=== PATIENT | female | born 1985 | race African-American/Black ===

== ENCOUNTER 2016-03-29 22:13 | Emergency (ER) | payer SELFPAY ==
[~2016-03-29] VITALS: Ht 160 cm; Wt 63.5 kg
[~2016-03-29 22:13] MED LIST: AMOX500C PO; HYDR-971 PO
[2016-03-29 22:24] VITALS: BP 127/80
--- NOTE | 2016-03-29 22:43 | PHYS DOC ---
Past Medical History Past Medical History: No Pertinent History Past Surgical History: No Surgical History Alcohol Use: None Drug Use: None Adult General Chief Complaint Chief Complaint: BLOOD SUGAR PROBLEM HPI HPI Patient is a 30 year old female who presents to the emergency Department today with complaint of "unusual/fruity" smelling urine for the past 2 weeks. Patient denies dysuria, hematuria, pelvic pain or flank pain. She denies any vaginal bleeding or discharge. Patient states that she has a family history of diabetes is been checking her blood sugar at home. Patient denies having any personal history of diabetes. Patient antibiotics within the past 90 days. Review of Systems Review of Systems Constitutional: Denies fever or chills [] Eyes: Denies change in visual acuity, redness, or eye pain [] HENT: Denies nasal congestion or sore throat [] Respiratory: Denies cough or shortness of breath [] Cardiovascular: No additional information not addressed in HPI [] GI: Denies abdominal pain, nausea, vomiting, bloody stools or diarrhea [] : Denies dysuria or hematuria [] Musculoskeletal: Denies back pain or joint pain [] Integument: Denies rash or skin lesions [] Neurologic: Denies headache, focal weakness or sensory changes [] Endocrine: Denies polyuria or polydipsia [] Allergies Allergies Allergies Coded Allergies Type Severity Reaction Last Updated Verified No Known Drug Allergies 12/25/15 No Physical Exam Physical Exam Constitutional: Well developed, well nourished, no acute distress, non-toxic appearance. [] HENT: Normocephalic, atraumatic, bilateral external ears normal, oropharynx moist, no oral exudates, nose normal. [] Eyes: PERRLA, EOMI, conjunctiva normal, no discharge. [] Neck: Normal range of motion, no tenderness, supple, no stridor. [] Cardiovascular:Heart rate regular rhythm, no murmur [] Lungs & Thorax: Bilateral breath sounds clear to auscultation [] Abdomen: Bowel sounds normal, soft, no tenderness, no masses, no pulsatile masses. [] Skin: Warm, dry, no erythema, no rash. [] Back: No tenderness, no CVA tenderness. [] Extremities: No tenderness, no cyanosis, no clubbing, ROM intact, no edema. [] Neurologic: Alert and oriented X 3, normal motor function, normal sensory function, no focal deficits noted. [] Psychologic: Affect normal, judgement normal, mood normal. [] Current Patient Data Vital Signs Vital Signs Date Time Temp Pulse Resp B/P Pulse Ox O2 Delivery O2 Flow Rate FiO2 03/29/16 22:24 98.2 80 18 100 Room Air 98.2 Lab Values Laboratory Tests Test 03/29/16 22:22 Urine Collection Type Unknown Urine Color Yellow Urine Clarity Clear Urine pH 6.0 Urine Specific [place] 1.015 Urine Protein Negativemg/dL (NEG-TRACE) Urine Glucose (UA) Negativemg/dL (NEG) Urine Ketones (Stick) Negativemg/dL (NEG) Urine Blood Trace (NEG) Urine Nitrite Negative (NEG) Urine Bilirubin Negative (NEG) Urine Urobilinogen Dipstick 0.2mg/dL (0.2 mg/dL) Urine Leukocyte Esterase Small (NEG) Urine RBC Occ/HPF (0-2) Urine WBC 5-10/HPF (0-4) Urine Squamous Epithelial Cells Mod/LPF Urine Bacteria Few/HPF (0-FEW) EKG EKG [] Radiology/Procedures Radiology/Procedures [] Course & Med Decision Making Course & Med Decision Making Pertinent Labs and Imaging studies reviewed. (See chart for details) [] Dragon Disclaimer Dragon Disclaimer This electronic medical record was generated, in whole or in part, using a voice recognition dictation system. Departure Departure Impression: Primary Impression: Urinary tract infection Disposition: 01 HOME, SELF-CARE Condition: GOOD Referrals: NO PCP (PCP) Patient Instructions: Urinary Tract Infection, [id number] Additional Instructions: 1. Your blood sugar here today is 109. 2. Take the antibiotic as prescribed. You may want to take an [id number] probiotic or eat a couple of yogurt daily. 3. Review the discharge instructions for self-care and reasons to return to the emergency department. 4. Use the pamphlet provided for assistance in finding a primary care doctor to address your medical concerns. Scripts Nitrofurantoin Macrocrystal (Nitrofurantoin)100 Mg Capsule1 Cap PO BID #14 CAP Prov:DARYN PETERS 03/29/16 Problem Qualifiers Primary Impression: Urinary tract infection Urinary tract infection type: acute cystitis Hematuria presence: without hematuria Qualified Code: N30.00 - Acute cystitis without hematuria DARYN PETERS Mar 29, 2016 22:44
[2016-03-29 22:49] LABS: BILIRUBIN,URINE NEGATIVE (NEG); GLUCOSE,URINE NEGATIVE (NEG); NITRITE,URINE NEGATIVE (NEG); PROTEIN,URINE NEGATIVE (NEG-TRACE); UROBILINOGEN,URINE 0.2 mg/dL (0.2 mg/dL)
[2016-03-29 23:05] LABS: BACTERIA,URINE FEW /HPF (0-FEW); RBC,URINE OCC /HPF (0-2); SQUAMOUS EPITHELIAL CELL,UR MOD /LPF
[2016-03-29] MEDS ORDERED: NITR100C PO (23:15)
--- NOTE | 2016-03-31 16:44 | VNOTE ---
CALL BACK NOTE CALL BACK Microbiology 03/29/16 Urine Culture - Final, Complete 03/29/16 Urine Culture Result 1 (WAYNE) - Final, Complete 03/29/16 Antimicrobic Susceptibility - Final, Complete urine culture positive for Enterobacter aerogenes, colony forming unit/ml, gram negative rods, 10-25,000 forming units per ml she was put on Macrobid, culture show it is intermediate coverage. Called patient she states she is doing very well and has no UTI symptoms. She will f/u with her own doctor. KERRI TERRELL APRN Mar 31, 2016 16:44
== END 2016-03-29 23:20 | disposition home or self-care (01) ==
LOC: ER 22:13
DX: N30.00 Acute cystitis without hematuria (principal)
CPT/HCPCS: 81001; 81025; 82947; 87086; 99284

== ENCOUNTER 2016-10-06 19:42 | Emergency (ER) | payer SELFPAY ==
[~2016-10-06] VITALS: Ht 160 cm; Wt 64.4 kg
[~2016-10-06 19:42] MED LIST changes: +NITR100C PO
[2016-10-06 19:46] VITALS: BP 123/68
[2016-10-06] MEDS ORDERED: TRAM-48 PO (20:21)
[2016-10-06] MEDS ORDERED: AMOX875T PO (20:21)
--- NOTE | 2016-10-06 20:22 | PHYS DOC ---
Past Medical History Past Medical History: No Pertinent History Past Surgical History: No Surgical History Alcohol Use: None Drug Use: None Adult General Chief Complaint Chief Complaint: DENTAL PROBLEM [facility] Patient is a 31 year old female who presents with moderate right lower gum dental pain that began 2 days ago after her tooth broke. Patient denies any fever or trismus. Review of Systems Review of Systems Constitutional: Denies fever or chills [] HENT:right lower gum dental pain Respiratory: Denies cough or shortness of breath [] Cardiovascular: No additional information not addressed in HPI [] Musculoskeletal: Denies back pain or joint pain [] Integument: Denies rash or skin lesions [] Neurologic: Denies headache, focal weakness or sensory changes [] Allergies Allergies Allergies Coded Allergies Type Severity Reaction Last Updated Verified No Known Drug Allergies 12/25/15 No Physical Exam Physical Exam Constitutional: Well developed, well nourished, no acute distress, non-toxic appearance. [] HENT: Normocephalic, atraumatic, bilateral external ears normal, oropharynx moist, no oral exudates, nose normal. [] Tooth #31 is broken and decayed. No gum erythema or swelling Skin: Warm, dry, no erythema, no rash. [] Back: No tenderness, no CVA tenderness. [] Extremities: No tenderness, no cyanosis, no clubbing, ROM intact, no edema. [] Neurologic: Alert and oriented X 3, normal motor function, normal sensory function, no focal deficits noted. [] Psychologic: Affect normal, judgement normal, mood normal. [] Current Patient Data Vital Signs Vital Signs Date Time Temp Pulse Resp B/P (MAP) Pulse Ox O2 Delivery O2 Flow Rate FiO2 10/06/16 19:46 98.5 69 16 100 Room Air 98.5 EKG EKG [] Radiology/Procedures Radiology/Procedures [] Course & Med Decision Making Course & Med Decision Making Pertinent Labs and Imaging studies reviewed. (See chart for details) Patient has infected dental carriers. D/c with amoxicillin and Ultram. F/u with her dentist next week. Dragon Disclaimer Dragon Disclaimer This electronic medical record was generated, in whole or in part, using a voice recognition dictation system. Departure Departure Impression: Primary Impression: Infected dental caries Additional Impression: Dentalgia Disposition: 01 HOME, SELF-CARE Condition: STABLE Referrals: NO PCP (PCP) follow up with your dentist next week Patient Instructions: Dental Caries Additional Instructions: You have infected dental carries. Complete your antibiotics take the pain medicines as needed. Scripts Tramadol Hcl (ULTRAM) 50 Mg Tablet 1 TAB PO Q6HRS, #30 TAB Prov: KERRI TERRELL APRN 10/06/16 Amoxicillin (AMOXICILLIN) 875 Mg Tablet 1 TAB PO BID, #20 TAB Prov: KERRI TERRELL APRN 10/06/16 Problem Qualifiers KERRI TERRELL APRN Oct 06, 2016 20:22
== END 2016-10-06 20:35 | disposition home or self-care (01) ==
LOC: ER 19:42
DX: K04.7 Periapical abscess without sinus (principal); K02.9 Dental caries, unspecified
CPT/HCPCS: 99283

== ENCOUNTER 2018-10-12 00:31 | Emergency (ER) | payer SELFPAY ==
[~2018-10-12] VITALS: Ht 162.6 cm; Wt 69.4 kg
[~2018-10-12 00:31] MED LIST changes: +AMOX875T PO; +HYDR-3164 PO; -HYDR-971 PO; +TRAM-48 PO
[2018-10-12 00:45] VITALS: BP 117/79
[2018-10-12] MEDS ORDERED: HYDR-3164 PO (01:14)
[2018-10-12] MEDS ORDERED: AMOX1TAB61 PO ×2 (01:14→01:19)
[2018-10-12] MEDS ORDERED: KETOROLAC 30 MG/ML VIAL. IM ONE (01:30)
--- NOTE | 2018-10-12 01:38 | PHYS DOC ---
Past Medical History Past Medical History: No Pertinent History Past Surgical History: No Surgical History Alcohol Use: None Drug Use: None Adult General Chief Complaint Chief Complaint: DENTAL PROBLEM HPI HPI Patient is a 33 year old dental pain left lower wisdom tooth for a couple days worse frankoiht took motrin Current Medications Current Medications Current Medications Medications (Trade) Dose Ordered Sig/Adamaris Start Time Stop Time Status Last Admin Dose Admin Ketorolac Tromethamine (Toradol 30mg Vial) 30 mg 1X ONCE 10/12/18 01:30 10/12/18 01:31 DC 10/12/18 01:25 30 MG Allergies Allergies Allergies Coded Allergies Type Severity Reaction Last Updated Verified No Known Drug Allergies 12/25/15 No Physical Exam Physical Exam Constitutional: Well developed, well nourished, no acute distress, non-toxic appearance. [] HENT: Normocephalic, atraumatic, bilateral external ears normal, oropharynx moist, no oral exudates, nose normal. [] left lower molar posteriorly some erythema no obvious drainable abscess, no facial swelling no lymphadenopathy Eyes: PERRLA, EOMI, conjunctiva normal, no discharge. [] Pulmonary: Normal respiratory effort no increased work of breathing no obvious chest wall trauma Abdomen: Bowel sounds normal, soft, no tenderness, no masses, no pulsatile masses. [] Skin: Warm, dry, no erythema, no rash. [] Neurologic: Alert and oriented X 3, normal motor function, normal sensory function, no focal deficits noted. [] Psychologic: Affect normal, judgement normal, mood normal. [] Current Patient Data Vital Signs Vital Signs Date Time Temp Pulse Resp B/P (MAP) Pulse Ox O2 Delivery O2 Flow Rate FiO2 10/12/18 00:45 97.8 78 17 117/79 (92) 100 Room Air 97.8 EKG EKG [] Radiology/Procedures Radiology/Procedures [] Course & Med Decision Making Course & Med Decision Making Pertinent Labs and Imaging studies reviewed. (See chart for details) []no drainable fluid collection given dental f/u pain meds, abx return prec discussed Tera Disclaimer Tera Disclaimer This electronic medical record was generated, in whole or in part, using a voice recognition dictation system. Departure Departure Impression: Primary Impression: Toothache Disposition: HOME, SELF-CARE Condition: STABLE Patient Instructions: Toothache-Brief Scripts Amoxicillin/Potassium Clav (AUGMENTIN 875-125 TABLET) 1 Each Tablet 1 TAB PO BID, #14 TAB Prov: JANI ABBASI MD 10/12/18 Amoxicillin/Potassium Clav (AUGMENTIN 875-125 TABLET) 1 Each Tablet 1 TAB PO BID, #28 TAB Prov: JANI ABBASI MD 10/12/18 Hydrocodone/Apap 5-325 (NORCO 5-325 TABLET) 1 Each Tablet 1-2 EACH PO PRN Q6HRS PRN for PAIN, #15 as needed for pain Prov: JANI ABBASI MD 10/12/18 JANI ABBASI MD Oct 12, 2018 01:38
== END 2018-10-12 01:30 | disposition home or self-care (01) ==
LOC: ER 00:31
DX: K08.89 Other specified disorders of teeth and supporting structures (principal)
CPT/HCPCS: 96372; 99283; J1885

== ENCOUNTER 2019-12-31 18:11 | Emergency (ER) | payer SELFPAY ==
[~2019-12-31] VITALS: Ht 162.6 cm; Wt 69.5 kg
[~2019-12-31 18:11] MED LIST changes: +AMOX1TAB61 PO
[2019-12-31 18:33] VITALS: BP 120/82
[2019-12-31] MEDS ORDERED: HYDROcodone/APAP 10/325 1 TAB TABLET PO ONE (18:45)
[2019-12-31] MEDS ORDERED: LIDO700A21 TP (18:49)
[2019-12-31] MEDS ORDERED: CYCL5TAB PO (18:49)
[2019-12-31] MEDS ORDERED: IBUP-1007 PO (18:49)
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
== END 2019-12-31 19:00 | disposition home or self-care (01) ==
LOC: ER 18:11
DX: R10.9 Unspecified abdominal pain (principal); M54.5 Low back pain; G89.11 Acute pain due to trauma; V47.5XXA Car driver injured in collision with fixed or stationary object in traffic accident, initial encounter; Y92.488 Other paved roadways as the place of occurrence of the external cause; Y93.89 Activity, other specified; Y99.8 Other external cause status
CPT/HCPCS: 99283